=== PATIENT | female | born 1980 | race Caucasian/White ===

== ENCOUNTER 2016-08-16 14:35 | Outpatient (CLI) | payer OTHER ==
--- NOTE | 2016-08-16 16:22 | DIAGNOSTIC IMAGING REPORT ---
PROCEDURE: US OB 1ST TRIMESTER W/TRANSVAG INDICATION: VAG BLEEDING TECHNIQUE: Sampson scale, color, and spectral Doppler transabdominal and endovaginal sonographic images of the first trimester gravid uterus were obtained. COMPARISON: None. FINDINGS: TRANSABDOMINAL SCANS: Anteverted uterus measures 6.9 x 5.5 x 3.7 cm. Normal kidneys. TRANSVAGINAL SCANS: There is an elongated cystic structure in the fundal portion of the endometrium which measures 4.4 mm, possibly a gestational sac 6-tmom-7-day. There is no pole or heart rate identified. There is a small amount of fluid in the endocervical canal. Left ovary is unremarkable. No adnexal mass or free fluid in the cul-de-sac. IMPRESSION: 1. Elongated cystic structure in the endometrium, likely a gestational sac (5 weeks 1 day). No pole or cardiac activity visualized. Recommend follow- up Beta hCG and ultrasound 2. Results discussed with Dr. Bolaños
--- NOTE | 2016-08-16 16:22 | DIAGNOSTIC IMAGING REPORT ---
PROCEDURE: US OB 1ST TRIMESTER W/TRANSVAG INDICATION: VAG BLEEDING TECHNIQUE: Sampson scale, color, and spectral Doppler transabdominal and endovaginal sonographic images of the first trimester gravid uterus were obtained. COMPARISON: None. FINDINGS: TRANSABDOMINAL SCANS: Anteverted uterus measures 6.9 x 5.5 x 3.7 cm. Normal kidneys. TRANSVAGINAL SCANS: There is an elongated cystic structure in the fundal portion of the endometrium which measures 4.4 mm, possibly a gestational sac 0-mbgp-0-day. There is no pole or heart rate identified. There is a small amount of fluid in the endocervical canal. Left ovary is unremarkable. No adnexal mass or free fluid in the cul-de-sac. IMPRESSION: 1. Elongated cystic structure in the endometrium, likely a gestational sac (5 weeks 1 day). No pole or cardiac activity visualized. Recommend follow- up Beta hCG and ultrasound 2. Results discussed with Dr. Bolaños
== END 2016-08-16 23:00 ==
LOC: US SRH 14:35
DX: Z34.80 Encounter for supervision of other normal pregnancy, unspecified trimester (principal); N93.9 Abnormal uterine and vaginal bleeding, unspecified; Z3A.00 Weeks of gestation of pregnancy not specified
CPT/HCPCS: 90001; 90074; 90078; 90155; 90193; 90197; 90364; 90648; 91004; 91023; 91643; 92863; 93073; 93140; 95059; 98480

== ENCOUNTER 2016-08-18 08:34 | Outpatient (CLI) | payer OTHER | END 2016-08-18 23:00 | LOC: LAB SRH 08:34 | DX: Z34.80 Encounter for supervision of other normal pregnancy, unspecified trimester (principal); N93.9 Abnormal uterine and vaginal bleeding, unspecified | CPT/HCPCS: 90074; 90197 ==